=== PATIENT | male | born 1945 | race Caucasian/White ===

== ENCOUNTER → 2019-09-15 | Outpatient (CLI) | payer MEDICARE, OTHER | END | disposition home or self-care (01) | LOC: RAD 08:00 | PROVIDERS: ATTEND Psychiatry & Neurology Neurology | DX: I65.03 Occlusion and stenosis of bilateral vertebral arteries (principal); H34.211 Partial retinal artery occlusion, right eye; F10.20 Alcohol dependence, uncomplicated | CPT/HCPCS: 93880 ==

== ENCOUNTER 2019-10-13 13:54 | Outpatient (CLI) | payer MEDICARE, OTHER | END 2019-10-13 23:59 | disposition home or self-care (01) | LOC: RAD 13:54 | PROVIDERS: ATTEND Internal Medicine | DX: M79.605 Pain in left leg (principal); R60.0 Localized edema ==